=== PATIENT | female | born 1990 | race Two or more races ===

== ENCOUNTER 2024-01-09 20:33 | Inpatient (IN) | payer OTHER ==
[2024-01-09 20:56] VITALS: BMI 25.0
[2024-01-09] MEDS ORDERED: NICOTINE POLACRILEX 2 MG GUM BUC PRN (21:40)
[2024-01-09] MEDS ORDERED: IBUPROFEN 400 MG TABLET (FP) PO PRN (21:40)
[2024-01-09] MEDS ORDERED: ACETAMINOPHEN 325 MG TABLET (FP) PO PRN (21:40)
[2024-01-09] MEDS ORDERED: BENZOCAINE/MENTHOL (CHLORASEPTIC ) LOZENGE MM PRN (21:40)
[2024-01-09] MEDS ORDERED: NICOTINE POLACRILEX 2 MG LOZENGE BC PRN (21:40)
[2024-01-09] MEDS ORDERED: BISMUTH SUBSALICYLATE 524 MG/30 ML PO PRN (21:40)
[2024-01-09] MEDS ORDERED: LOPERAMIDE HCL 2 MG CAPSULE PO PRN (21:40)
[2024-01-09] MEDS ORDERED: MAG HYDROX/AL HYDROX/SIMETH 30 ML UNIT-DOSE CUP PO PRN (21:40)
[2024-01-09] MEDS ORDERED: BENZONATATE 200 MG CAPSULE PO PRN (21:40)
[2024-01-09] MEDS ORDERED: guaiFENesin 600 MG TABLET.ER (FP) PO PRN (21:40)
[2024-01-09] MEDS ORDERED: DICYCLOMINE HCL 10 MG CAPSULE PO PRN (21:40)
[2024-01-09] MEDS ORDERED: MELATONIN 5 MG TABLETS ONE (21:59)
[2024-01-09] MEDS: MELATONIN 5 MG TABLETS PO SCH (22:06)
[2024-01-09] MEDS: THIAMINE 100 MG TABLET PO SCH (22:07)
[2024-01-09] MEDS ORDERED: ONDANSETRON *ODT* 4 MG TABLET ONE (22:27)
[2024-01-09] MEDS: ONDANSETRON *ODT* 4 MG TABLET SL PRN (22:28)
[2024-01-09] MEDS ORDERED: TRIMETHOBENZAMIDE HCL 200MG/2ML INJ IM ONE (23:27)
[2024-01-10] MEDS: chlordiazePOXIDE HCL 25 MG CAPSULE PO SCH (00:18)
[2024-01-10] MEDS: TRIMETHOBENZAMIDE HCL 200MG/2ML INJ IM PRN (01:26)
[2024-01-10] MEDS: PRENATAL VITAMINS W/ FOLIC ACID TABLET (FP) PO SCH (10:04)
[2024-01-10 12:54] LABS: CHLORIDE 100 mmol/L (98-107); POTASSIUM 4.6 mmol/L (3.5-5.1); SODIUM 134 mmol/L (136-145)
[2024-01-10 13:00] LABS: CALCIUM 9.4 mg/dL (8.5-10.1); HEMATOCRIT 36.6 % (32.4-45.2); HEMOGLOBIN 11.7 GM/dL (10.7-15.3); MCH 28.8 pg (25.7-33.7); MCHC 32.1 g/dl (32.0-36.0); MEAN CELL VOLUME 89.7 fl (80-96); MEAN PLT VOLUME 8.1 fl (7.5-11.1); PLATELET COUNT 368 10^3/uL (134-434); RBC 4.08 M/mm3 (3.60-5.2); WHITE BLOOD COUNT 13.9 K/mm3 (4.0-10.0)
[2024-01-10 13:05] LABS: ANION GAP 12 mmol/L (4-13); BLOOD UREA NITROGEN 10.2 mg/dL (7-18); CO2 22 mmol/L (21-32); GLUCOSE,RANDOM 103 mg/dL (74-106)
[2024-01-10 13:08] LABS: CREATININE 0.6 mg/dL (0.55-1.3); SGOT/AST 33 U/L (15-37); SGPT/ALT 36 U/L (13-61)
[2024-01-10 13:09] LABS: BILIRUBIN,TOTAL 0.9 mg/dL (0.2-1)
[2024-01-10 13:10] LABS: ALK PHOS 83 U/L (45-117); TOT PROT 7.8 g/dl (6.4-8.2)
[2024-01-10] MEDS: FAMOTIDINE 20 MG TABLET PO SCH (16:52)
[2024-01-10] MEDS: hydrOXYzine PAMOATE 25 MG CAPSULE (FP) PO PRN (17:53)
[2024-01-10] MEDS: MELATONIN 5 MG TABLETS PO SCH (22:33)
[2024-01-10] MEDS: METHOCARBAMOL 500 MG TABLET PO PRN (22:34)
[2024-01-11] MEDS: chlordiazePOXIDE HCL 25 MG CAPSULE PO PRN (05:42)
[2024-01-11] MEDS: chlordiazePOXIDE HCL 25 MG CAPSULE PO SCH (05:44)
[2024-01-11] MEDS: MAGNESIUM HYDROX 2400MG/30ML ORAL SUSPENSION 30 ML CUP PO PRN (17:43)
[2024-01-11] MEDS: POLYETHYLENE GLYCOL (HEALTHYLAX) 3350 17 GM PACKET PO PRN (22:19)
[2024-01-12] MEDS ORDERED: chlordiazePOXIDE HCL 10 MG CAPSULE PO PRN
[2024-01-12] MEDS: chlordiazePOXIDE HCL 10 MG CAPSULE PO SCH (05:51)
[2024-01-12] MEDS: NALTREXONE HCL 50 MG TABLET PO SCH (12:15)
[2024-01-13] MEDS: chlordiazePOXIDE HCL 10 MG CAPSULE PO SCH (05:43)
[2024-01-13 16:18] LABS: BASO % 0.6 % (0-2.0); EOS % 4.1 % (0-4.5); HEMATOCRIT 38.6 % (32.4-45.2); HEMOGLOBIN 12.4 GM/dL (10.7-15.3); LYMPH % 25.6 % (8-40); MCH 29.1 pg (25.7-33.7); MCHC 32.3 g/dl (32.0-36.0); MEAN CELL VOLUME 90.3 fl (80-96); MEAN PLT VOLUME 8.4 fl (7.5-11.1); MONO % 8.8 % (3.8-10.2); NEUT % 60.9 % (42.8-82.8); PLATELET COUNT 320 10^3/uL (134-434); RBC 4.27 M/mm3 (3.60-5.2); RDW 13.4 % (11.6-15.6); WHITE BLOOD COUNT 8.1 K/mm3 (4.0-10.0)
[2024-01-13] MEDS: IBUPROFEN 600 MG TABLET (FP) PO PRN (22:24)
[2024-01-14] MEDS: chlordiazePOXIDE HCL 10 MG CAPSULE PO ONE (05:55)
[2024-01-14 07:56] VITALS: RESP 16
[2024-01-14 09:16] VITALS: BP 124/77; PULSE 78; TEMP 98.1
[2024-01-14] MEDS: NALOXONE (NYS OPIOID OVERDOSE PROGRAM) 4 MG/0.1 ML SPRAY NS SCH (09:56)
== END 2024-01-14 11:10 | disposition home or self-care (01) | DRG 775 ==
LOC: YASAS 20:33 → Y6N 22:21
PROVIDERS: ADMIT Allergy & Immunology; ATTEND Surgery
PROC: HZ2ZZZZ Detoxification Services for Substance Abuse Treatment (ICD-10-PCS; principal; 2024-01-09)
DX: F10.230 Alcohol dependence with withdrawal, uncomplicated (principal); F17.210 Nicotine dependence, cigarettes, uncomplicated; F10.282 Alcohol dependence with alcohol-induced sleep disorder; F10.280 Alcohol dependence with alcohol-induced anxiety disorder; K21.9 Gastro-esophageal reflux disease without esophagitis; Z62.810 Personal history of physical and sexual abuse in childhood; Z63.8 Other specified problems related to primary support group
CPT/HCPCS: 36415; 71045-TC-FY; 80053; 80305; 80307; 81025; 83690; 84484; 84703; 85025; 85027; 86780; 93005; 93010; J0131; Q0162